=== PATIENT | male | born 1970 | race Caucasian/White ===

== ENCOUNTER 2023-09-06 04:20 | Inpatient (IN) | payer BC, OTHER ==
[~2023-09-06] VITALS: Ht 175.3 cm; Wt 68.9 kg
[2023-09-06] VITALS (10 sets, daily range): BP systolic 98–136; BP diastolic 58–78; TEMP 98.8–100.6; O2SAT 93–99
[2023-09-06] MEDS ORDERED: ACETAMINOPHEN 325 MG TABLET ONE (04:45)
[2023-09-06] MEDS: IV NS 0.9% 1,000 ML BAG IV ONE ×2 (04:46→06:27)
[2023-09-06] MEDS: ACETAMINOPHEN 650 MG/20 ML UDC- SA PATIENTS-FEVER ONLY GT PRN (04:47)
[2023-09-06 04:54] LABS: BASOPHILS % (AUTO) 0.6 % (0.0-2.0); EOSINOPHILS % (AUTO) 0.6 % (0.0-6.0); HEMATOCRIT 36 % (39-51); LYMPHOCYTES # (AUTO) 1.1 K/uL (0.8-4.8); LYMPHOCYTES % (AUTO) 14.2 % (20.0-44.0); MEAN CORPUSCULAR HEMOGLOBIN 28 PG (26.0-33.0); MEAN CORPUSCULAR HGB CONC 33 g/dl (31.0-36.0); MEAN CORPUSCULAR VOLUME 86 fL (80-96); MONOCYTES # (AUTO) 0.3 K/uL (0.1-1.30); MONOCYTES % (AUTO) 4.2 % (2.0-12.0); NEUTROPHILS # (AUTO) 6.4 K/uL (1.8-8.9); NEUTROPHILS % (AUTO) 80.4 % (43.0-81.0); PLATELET COUNT (AUTO) 197 K/uL (150-450); RED BLOOD CELL COUNT(AUTO) 4.23 MIL/uL (4.5-6.0); RED CELL DISTRIBUTION WIDTH 15.6 % (11.5-15.0); WHITE BLOOD COUNT (AUTO) 7.9 K/uL (4.3-11.0)
[2023-09-06 04:57] LABS: ADD URINE CULTURE NO; APPEARANCE,URINE CLEAR (CLEAR); BACTERIA,URINE Rare /HPF (None Seen); BILIRUBIN,URINE NEGATIVE (NEGATIVE); BLOOD, URINE NEGATIVE Ery/uL (NEGATIVE); COLOR,URINE DARK YELLOW (YELLOW); KETONES,URINE TRACE mg/dL (NEGATIVE); LEUKOCYTE ESTERASE ,URINE NEGATIVE (NEGATIVE); NITRITE, URINE NEGATIVE (NEGATIVE); PROTEIN,URINE TRACE mg/dl (NEGATIVE); RBC,URINE 0-2 /HPF (0-2); SQUAMOUS EPITHELIAL CELL,UR Rare /HPF (None Seen); UGLUCOSE NEGATIVE (NEGATIVE); UROBILINOGEN,URINE 0.2 EU/dL (0.2); WBC,URINE 0-2 /HPF (0-3)
[2023-09-06 05:05] LABS: INR 1.16 (0.91-1.10); PARTIAL THROMBOPLASTIN TIME 37.4 SEC (24.3-34.3); PROTHROMBIN TIME 12.2 SECS (9.2-11.1)
[2023-09-06 05:08] LABS: ALANINE AMINOTRANSFERASE 103 U/L (12-78); ALBUMIN 2.1 g/dL (3.4-5.0); ALKALINE PHOSPHATASE 275 U/L (46-116); ASPARTATE AMINOTRANSFERASE 46 U/L (15-37); BILIRUBIN,DIRECT 0.1 mg/dL (0.0-0.2); BILIRUBIN,TOTAL 0.4 mg/dL (0.2-1.0); CALCIUM, SERUM 8.4 mg/dL (8.5-10.1); CARBON DIOXIDE 22 mmol/L (21-32); CHLORIDE 102 mmol/L (98-107); CREATININE 1.7 mg/dL (0.6-1.3); GLUCOSE 166 mg/dL (74-106); POTASSIUM 3.7 mmol/L (3.5-5.1); SODIUM SERUM 133 mmol/L (136-145); UREA NITROGEN, BLOOD 58 mg/dL (7-18)
[2023-09-06 05:15] LABS: ABG BASE EXCESS -4.8 mmol/L; ABG OXYGEN SATURATION 95.2 % (92.0-98.5); ABG PCO2 33.6 mmHg (35.0-45.0); ABG PH 7.383 (7.350-7.450); ABG PO2 82.5 mmHg (75.0-100.0); ABG TOTAL HEMOGLOBIN 11.2 G/dL (13.5-18.0); COHb 0.2 % (0.5-1.5); MetHb 0.2 % (0.0-1.5); O2Hb 94.8 % (94.0-97.0); SITE, ABG Right Radial; VENT MODE, BG 8L IN LINE
[2023-09-06] MEDS ORDERED: ACETAMINOPHEN 325 MG TABLET PO PRN (05:30)
[2023-09-06] MEDS ORDERED: ONDANSETRON HCL/PF 4 MG/2 ML VIAL IVP PRN (05:30)
[2023-09-06] MEDS ORDERED: PANTOPRAZOLE 40 MG VIAL ONE ×2 (05:55→06:30)
[2023-09-06] MEDS ORDERED: ACETAMINOPHEN 650 MG/20.3 ML UDC ONE (05:55)
[2023-09-06] MEDS ORDERED: PIPERACI/TAZO 3.375GM/D5W 50ML PB IV ONE (06:08)
[2023-09-06] MEDS: PIPERACILLIN /TAZOBACTAM 3.375 G in IV D5W 50 ML IV ONE (06:09)
[2023-09-06] MEDS: PANTOPRAZOLE 40 MG VIAL IV SCH (06:27)
[2023-09-06] MEDS: PANTOPRAZOLE 80 MG in IV NS 0.9% 500 ML IV ONE (06:44)
[2023-09-06 10:48] LABS: BASOPHILS # (AUTO) 0.1 K/uL (0.0-0.2); BASOPHILS % (AUTO) 1.3 % (0.0-2.0); EOSINOPHILS # (AUTO) 0.3 K/uL (0.0-0.7); EOSINOPHILS % (AUTO) 5.1 % (0.0-6.0); HEMATOCRIT 33 % (39-51); HEMOGLOBIN 10.2 g/dL (13.5-17.5); LYMPHOCYTES # (AUTO) 0.5 K/uL (0.8-4.8); MEAN CORPUSCULAR HEMOGLOBIN 29 PG (26.0-33.0); MEAN CORPUSCULAR HGB CONC 31 g/dl (31.0-36.0); MEAN CORPUSCULAR VOLUME 91 fL (80-96); MONOCYTES # (AUTO) 0.2 K/uL (0.1-1.30); MONOCYTES % (AUTO) 4.2 % (2.0-12.0); NEUTROPHILS # (AUTO) 4.5 K/uL (1.8-8.9); NEUTROPHILS % (AUTO) 80.4 % (43.0-81.0); PLATELET COUNT (AUTO) 163 K/uL (150-450); RED BLOOD CELL COUNT(AUTO) 3.56 MIL/uL (4.5-6.0); RED CELL DISTRIBUTION WIDTH 16.3 % (11.5-15.0); WHITE BLOOD COUNT (AUTO) 5.6 K/uL (4.3-11.0)
[2023-09-06] MEDS: VANCOMYCIN HCL 1.25 GM in IV D5W 250 ML IV ONE (11:35)
[2023-09-06] MEDS: IV NS 0.9% 1,000 ML IV PRN (11:36)
[2023-09-06] MEDS ORDERED: LISI20TA30 GT (12:16)
[2023-09-06] MEDS ORDERED: MAGN400T8 GT (12:16)
[2023-09-06] MEDS ORDERED: MODAFINIL GT (12:16)
[2023-09-06] MEDS ORDERED: FAMO20TA8 GT (12:16)
[2023-09-06] MEDS ORDERED: POTASSIUM BICARB GT (12:16)
[2023-09-06] MEDS ORDERED: LABE200T5 GT (12:16)
[2023-09-06] MEDS ORDERED: NA P133E RC (12:16)
[2023-09-06] MEDS ORDERED: MAGN400O6 GT (12:16)
[2023-09-06] MEDS ORDERED: HYDR-4075 GT (12:16)
[2023-09-06] MEDS ORDERED: HONE44PA TP (12:16)
[2023-09-06] MEDS ORDERED: BACL10TA GT (12:16)
[2023-09-06] MEDS ORDERED: ACET325T53 GT (12:16)
[2023-09-06] MEDS ORDERED: ACET-637 GT (12:16)
[2023-09-06] MEDS ORDERED: CHLO473M5 PO (12:16)
[2023-09-06] MEDS ORDERED: BISA10SU11 RC (12:16)
[2023-09-06] MEDS ORDERED: CLON0.1T GT (12:16)
[2023-09-06] MEDS ORDERED: HEPA500014 SQ (12:16)
[2023-09-06] MEDS ORDERED: TEMA15CA GT (12:16)
[2023-09-06] MEDS ORDERED: IPRA4AER IH ×2 (12:16)
[2023-09-06] MEDS ORDERED: ZONI100C31 GT (12:16)
[2023-09-06] MEDS ORDERED: DOCU100C36 GT (12:16)
[2023-09-06] MEDS ORDERED: LACT-89 GT (12:19)
[2023-09-06] MEDS: THERAHONEY GEL 1.5 OZ TUBE TP SCH (13:04)
[2023-09-06] MEDS: DAKINS QUARTER STRENGTH (0.125%) 480 ML BOTTLE TOP SCH (13:04)
[2023-09-06] MEDS: ZOSYN IVPB 3.375 G in IV D5W 50ml IV SCH (14:16)
[2023-09-06] MEDS: ACETAMINOPHEN 650 MG/20.3 ML UDC GT PRN (15:53)
[2023-09-06] MEDS: VANCOMYCIN 750 MG in IV D5W 250 ML IV SCH (21:29)
[2023-09-07] VITALS (12 sets, daily range): BP systolic 137–176; BP diastolic 74–99; TEMP 98.2–99.5; O2SAT 97–100
[2023-09-07 06:50] LABS: APPEARANCE,URINE TURBID (CLEAR); BILIRUBIN,URINE NEGATIVE (NEGATIVE); BLOOD, URINE 2+ Ery/uL (NEGATIVE); COLOR,URINE DARK YELLOW (YELLOW); KETONES,URINE NEGATIVE (NEGATIVE); LEUKOCYTE ESTERASE ,URINE NEGATIVE (NEGATIVE); NITRITE, URINE NEGATIVE (NEGATIVE); PROTEIN,URINE TRACE mg/dl (NEGATIVE); UGLUCOSE NEGATIVE (NEGATIVE); UROBILINOGEN,URINE 0.2 EU/dL (0.2)
[2023-09-07 07:07] LABS: BASOPHILS % (AUTO) 0.4 % (0.0-2.0); EOSINOPHILS # (AUTO) 0.6 K/uL (0.0-0.7); EOSINOPHILS % (AUTO) 12.2 % (0.0-6.0); HEMATOCRIT 29 % (39-51); HEMOGLOBIN 9.7 g/dL (13.5-17.5); LYMPHOCYTES # (AUTO) 0.8 K/uL (0.8-4.8); LYMPHOCYTES % (AUTO) 17.3 % (20.0-44.0); MEAN CORPUSCULAR HEMOGLOBIN 29 PG (26.0-33.0); MEAN CORPUSCULAR HGB CONC 34 g/dl (31.0-36.0); MEAN CORPUSCULAR VOLUME 86 fL (80-96); MONOCYTES # (AUTO) 0.3 K/uL (0.1-1.30); MONOCYTES % (AUTO) 5.5 % (2.0-12.0); NEUTROPHILS # (AUTO) 3.1 K/uL (1.8-8.9); NEUTROPHILS % (AUTO) 64.6 % (43.0-81.0); PLATELET COUNT (AUTO) 167 K/uL (150-450); RED BLOOD CELL COUNT(AUTO) 3.32 MIL/uL (4.5-6.0); RED CELL DISTRIBUTION WIDTH 15.4 % (11.5-15.0); WHITE BLOOD COUNT (AUTO) 4.8 K/uL (4.3-11.0)
[2023-09-07 07:09] LABS: ADD URINE CULTURE YES; BACTERIA,URINE Rare /HPF (None Seen); SQUAMOUS EPITHELIAL CELL,UR Few /HPF (None Seen)
[2023-09-07 07:27] LABS: CREATININE, URINE 117.1 MG/DL (30.0-125.0); URINE TOTAL PROTEIN 93.5 mg/dL (0-11.9)
[2023-09-07 07:30] LABS: EOSINOPHIL,URINE None Seen
[2023-09-07 07:39] LABS: ALBUMIN 1.9 g/dL (3.4-5.0); BILIRUBIN,TOTAL 0.4 mg/dL (0.2-1.0); CALCIUM, SERUM 8.3 mg/dL (8.5-10.1); CREATININE 0.8 mg/dL (0.6-1.3); MAGNESIUM 1.9 mg/dL (1.8-2.4); PHOSPHORUS 2.4 mg/dL (2.5-4.9); POTASSIUM 3.3 mmol/L (3.5-5.1); TOTAL PROTEIN, SERUM 6.3 g/dL (6.4-8.2)
[2023-09-07] MEDS: POTASSIUM CL. PREMIX PERIPHER. 50 ML IV SCH (08:26)
[2023-09-07] MEDS: NEUTRA PHOS 1 POWD.PACKET PO ONE (16:08)
[2023-09-07] MEDS: CADEXOMER IODINE 40 GM TUBE TP SCH (16:11)
[2023-09-07] MEDS: VANCOMYCIN 750 MG in IV D5W 250 ML IV SCH (16:27)
[2023-09-07] MEDS: CLONIDINE HCL 0.1 MG TABLET GT PRN (16:50)
[2023-09-07] MEDS: PANTOPRAZOLE 40 MG/PACK PACK GT SCH (20:56)
[2023-09-08] VITALS (10 sets, daily range): BP systolic 142–186; BP diastolic 65–115; TEMP 97.2–99.2; O2SAT 99–100
[2023-09-08 07:02] LABS: BASOPHILS % (AUTO) 0.8 % (0.0-2.0); EOSINOPHILS # (AUTO) 0.4 K/uL (0.0-0.7); HEMATOCRIT 31 % (39-51); HEMOGLOBIN 10.4 g/dL (13.5-17.5); LYMPHOCYTES # (AUTO) 0.9 K/uL (0.8-4.8); LYMPHOCYTES % (AUTO) 19.7 % (20.0-44.0); MEAN CORPUSCULAR HEMOGLOBIN 29 PG (26.0-33.0); MEAN CORPUSCULAR HGB CONC 34 g/dl (31.0-36.0); MEAN CORPUSCULAR VOLUME 86 fL (80-96); MONOCYTES # (AUTO) 0.4 K/uL (0.1-1.30); MONOCYTES % (AUTO) 7.7 % (2.0-12.0); NEUTROPHILS % (AUTO) 62.8 % (43.0-81.0); PLATELET COUNT (AUTO) 212 K/uL (150-450); RED BLOOD CELL COUNT(AUTO) 3.59 MIL/uL (4.5-6.0); RED CELL DISTRIBUTION WIDTH 14.9 % (11.5-15.0); WHITE BLOOD COUNT (AUTO) 4.8 K/uL (4.3-11.0)
[2023-09-08 08:04] LABS: CALCIUM, SERUM 8.2 mg/dL (8.5-10.1); CREATININE 0.7 mg/dL (0.6-1.3); POTASSIUM 3.6 mmol/L (3.5-5.1)
[2023-09-08 09:07] LABS: PTH, INTACT 15 pg/mL (15-65)
[2023-09-08] MEDS: ARGININE/GLUTAMINE/CALCIUM BMB 1 EACH POWD.PACK GT SCH (09:31)
[2023-09-08] MEDS: PROSOURCE / PROSTAT (PYXIS) 30 ML UDC GT SCH (09:31)
[2023-09-08 12:07] LABS: *SPE A/G RATIO 0.7 (0.7-1.7); *SPE ALBUMIN 2.3 g/dL (2.9-4.4); *SPE ALPHA-1-GLOBULIN 0.5 g/dL (0.0-0.4); *SPE BETA GLOBULIN 0.9 g/dL (0.7-1.3); *SPE GLOBULIN, TOTAL 3.4 g/dL (2.2-3.9); *SPE M-SPIKE Not Observed g/dL (Not Observed); *SPE PROTEIN TOTAL 5.7 g/dL (6.0-8.5)
[2023-09-08] MEDS: ZOSYN IVPB 4.5 G in IV D5W 50ml IV SCH (12:12)
[2023-09-08] MEDS: JEVITY 1.2 CAL 1,000 ML BOTTLE GT PRN (13:34)
[2023-09-09] VITALS (9 sets, daily range): BP systolic 152–165; BP diastolic 86–109; TEMP 98.4–99.2; O2SAT 99–100
[2023-09-09 06:43] LABS: BASOPHILS % (AUTO) 0.4 % (0.0-2.0); EOSINOPHILS # (AUTO) 0.4 K/uL (0.0-0.7); EOSINOPHILS % (AUTO) 7.8 % (0.0-6.0); HEMATOCRIT 32 % (39-51); HEMOGLOBIN 10.7 g/dL (13.5-17.5); LYMPHOCYTES # (AUTO) 1.2 K/uL (0.8-4.8); LYMPHOCYTES % (AUTO) 21.6 % (20.0-44.0); MEAN CORPUSCULAR HEMOGLOBIN 29 PG (26.0-33.0); MEAN CORPUSCULAR HGB CONC 34 g/dl (31.0-36.0); MEAN CORPUSCULAR VOLUME 87 fL (80-96); MONOCYTES # (AUTO) 0.5 K/uL (0.1-1.30); MONOCYTES % (AUTO) 8.5 % (2.0-12.0); NEUTROPHILS # (AUTO) 3.4 K/uL (1.8-8.9); NEUTROPHILS % (AUTO) 61.7 % (43.0-81.0); PLATELET COUNT (AUTO) 236 K/uL (150-450); RED BLOOD CELL COUNT(AUTO) 3.65 MIL/uL (4.5-6.0); RED CELL DISTRIBUTION WIDTH 14.8 % (11.5-15.0); WHITE BLOOD COUNT (AUTO) 5.5 K/uL (4.3-11.0)
[2023-09-09 07:13] LABS: CALCIUM, SERUM 8.3 mg/dL (8.5-10.1); CREATININE 0.7 mg/dL (0.6-1.3); POTASSIUM 3.3 mmol/L (3.5-5.1)
[2023-09-09] MEDS: hydrALAZINE HCL 50 MG TABLET GT SCH (09:42)
[2023-09-09] MEDS: NITROGLYCERIN 30 GM TUBE TP SCH (10:01)
[2023-09-09] MEDS: POTASSIUM CHLORIDE 20 MEQ POWDER PACKET PO ONE (11:34)
[2023-09-10] VITALS (11 sets, daily range): BP systolic 146–166; BP diastolic 92–118; TEMP 98.5–99; O2SAT 96–99
[2023-09-10 08:45] LABS: CALCIUM, SERUM 7.8 mg/dL (8.5-10.1); CREATININE 0.7 mg/dL (0.6-1.3); POTASSIUM 3.8 mmol/L (3.5-5.1)
[2023-09-10] MEDS: METOPROLOL TARTRATE 50 MG TABLET PO SCH (09:36)
[2023-09-10] MEDS: MAGNESIUM HYDROXIDE 30 ML UDC PO PRN (11:33)
[2023-09-11] VITALS (7 sets, daily range): BP systolic 150–173; BP diastolic 72–102; TEMP 97.7–99.4; O2SAT 96–99
[2023-09-11 08:39] LABS: CALCIUM, SERUM 7.8 mg/dL (8.5-10.1); CREATININE 0.7 mg/dL (0.6-1.3)
[2023-09-11] MEDS: NIFEdipine (10MG) 10 MG CAPSULE PO SCH (09:45)
[2023-09-11] MEDS: AMLODIPINE BESYLATE 5 MG TABLET GT SCH (10:50)
[2023-09-12] VITALS (11 sets, daily range): BP systolic 145–182; BP diastolic 75–116; TEMP 98.2–99.5; O2SAT 95–99
[2023-09-12 07:15] LABS: CALCIUM, SERUM 8.4 mg/dL (8.5-10.1); CREATININE 0.7 mg/dL (0.6-1.3)
[2023-09-12] MEDS ORDERED: NITROGLYCERIN 30 GM TUBE TP SCH (13:30)
[2023-09-12] MEDS: MORPHINE SULFATE INJ 2 MG/ML DISP.SYRIN IV PRN (13:46)
[2023-09-13] VITALS (10 sets, daily range): BP systolic 125–165; BP diastolic 79–95; TEMP 98–99; O2SAT 95–98
[2023-09-13 07:33] LABS: CREATININE 0.7 mg/dL (0.6-1.3); POTASSIUM 4.1 mmol/L (3.5-5.1)
[2023-09-13 13:15] LABS: BASOPHILS # (AUTO) 0.1 K/uL (0.0-0.2); BASOPHILS % (AUTO) 0.8 % (0.0-2.0); EOSINOPHILS # (AUTO) 0.5 K/uL (0.0-0.7); HEMATOCRIT 34 % (39-51); HEMOGLOBIN 11.3 g/dL (13.5-17.5); LYMPHOCYTES # (AUTO) 1.9 K/uL (0.8-4.8); LYMPHOCYTES % (AUTO) 22.6 % (20.0-44.0); MEAN CORPUSCULAR HEMOGLOBIN 29 PG (26.0-33.0); MEAN CORPUSCULAR HGB CONC 34 g/dl (31.0-36.0); MEAN CORPUSCULAR VOLUME 87 fL (80-96); MONOCYTES # (AUTO) 0.9 K/uL (0.1-1.30); MONOCYTES % (AUTO) 11.1 % (2.0-12.0); NEUTROPHILS % (AUTO) 59.5 % (43.0-81.0); PLATELET COUNT (AUTO) 502 K/uL (150-450); RED BLOOD CELL COUNT(AUTO) 3.88 MIL/uL (4.5-6.0); RED CELL DISTRIBUTION WIDTH 15.9 % (11.5-15.0); WHITE BLOOD COUNT (AUTO) 8.4 K/uL (4.3-11.0)
[2023-09-14 00:18] VITALS: O2SAT 96
[2023-09-14 04:00] VITALS: BP 151/82; TEMP 98.1; O2SAT 98
[2023-09-14 04:02] VITALS: O2SAT 96
[2023-09-14 08:00] VITALS: BP 136/86; TEMP 98.3; O2SAT 98
[2023-09-14] MEDS: AMLODIPINE BESYLATE 5 MG TABLET GT SCH (09:13)
[2023-09-14] MEDS ORDERED: METO50TA16 PO (09:21)
[2023-09-14] MEDS ORDERED: PIPE3.379 IV (09:21)
[2023-09-14] MEDS ORDERED: AMLO-212 GT (09:21)
[2023-09-14 12:34] VITALS: BP 126/85
[2023-09-14] MEDS: MORPHINE SULFATE INJ 2 MG/ML DISP.SYRIN IV ONE (14:54)
[2023-09-14] MEDS ORDERED: HYDR-3972 PO (15:22)
== END 2023-09-14 16:13 | DRG 981 ==
LOC: EDBD 04:25 → ER 04:25 → TELE-TD 07:28 → TELE1 09-07 07:57 → MEDSG1 09-07 08:45
PROVIDERS: ADMIT Internal Medicine; ATTEND Nurse Practitioner Acute Care
PROC: 0DB68ZX Excision of Stomach, Via Natural or Artificial Opening Endoscopic, Diagnostic (ICD-10-PCS; principal; 2023-09-07)
PROC: 0KBN0ZZ Excision of Right Hip Muscle, Open Approach (ICD-10-PCS; 2023-09-13)
PROC: 0KBP0ZZ Excision of Left Hip Muscle, Open Approach (ICD-10-PCS; 2023-09-13)
DX: K29.70 Gastritis, unspecified, without bleeding (principal); E43 Unspecified severe protein-calorie malnutrition; L89.894 Pressure ulcer of other site, stage 4; L89.154 Pressure ulcer of sacral region, stage 4; J15.69 Pneumonia due to other Gram-negative bacteria; G93.41 Metabolic encephalopathy; N17.0 Acute kidney failure with tubular necrosis; I21.A1 Myocardial infarction type 2; Z99.11 Dependence on respirator [ventilator] status; J96.11 Chronic respiratory failure with hypoxia; E87.1 Hypo-osmolality and hyponatremia; D68.59 Other primary thrombophilia; Z93.0 Tracheostomy status; Z93.1 Gastrostomy status; N18.9 Chronic kidney disease, unspecified; I12.9 Hypertensive chronic kidney disease with stage 1 through stage 4 chronic kidney disease, or unspecified chronic kidney disease; R13.10 Dysphagia, unspecified; Z20.822 Contact with and (suspected) exposure to COVID-19; F19.10 Other psychoactive substance abuse, uncomplicated; G40.909 Epilepsy, unspecified, not intractable, without status epilepticus; Z86.73 Personal history of transient ischemic attack (TIA), and cerebral infarction without residual deficits; E86.1 Hypovolemia; E88.09 Other disorders of plasma-protein metabolism, not elsewhere classified; R74.01 Elevation of levels of liver transaminase levels; Z74.09 Other reduced mobility; Z74.01 Bed confinement status; Y95 Nosocomial condition; Z87.891 Personal history of nicotine dependence; D64.9 Anemia, unspecified; M89.8X9 Other specified disorders of bone, unspecified site
CPT/HCPCS: 31720; 36415; 36600; 71045-TC; 76700-TC; 80048-TC; 80053-TC; 80076-TC; 80202-TC; 81001; 82550-TC; 82570-TC; 83605-TC; 83735-TC; 83970; 84100-TC; 84155; 84165; 84300-TC; 84484-TC; 85025-TC; 85730-TC; 86850-TC; 87040-TC; 87081-TC; 87086-TC; 88305-TC; 88313-TC; 88342; 93307-TC; 94640-TC; 94760-TC; 94799-TC; A4223; A4623; A6403; C9113; G0378; J0330; J2270; J2543; J2704; J3371; J3480; J7030; J7040; J7050; J7060

== ENCOUNTER 2023-09-28 12:47 | Inpatient (IN) | payer BC ==
[~2023-09-28] VITALS: Ht 170.2 cm; Wt 78.0 kg
[~2023-09-28 12:47] MED LIST: ACET-637 GT; ACET325T53 GT; AMLO-212 GT; BACL10TA GT; BISA10SU11 RC; CHLO473M5 PO; CLON0.1T GT; DOCU100C36 GT; FAMO20TA8 GT; HEPA500014 SQ; HONE44PA TP; HYDR-3972 PO; HYDR-4075 GT; IPRA4AER IH; LACT-89 GT; MAGN400O6 GT; MAGN400T8 GT; METO50TA16 PO; MODAFINIL GT; NA P133E RC; PIPE3.379 IV; POTASSIUM BICARB GT; TEMA15CA GT; ZONI100C31 GT
[2023-09-28] MEDS: IV NS 0.9% 1,000 ML BAG IV ONE (13:01)
[2023-09-28 13:11] LABS: BASOPHILS # (AUTO) 0.1 K/uL (0.0-0.2); BASOPHILS % (AUTO) 0.7 % (0.0-2.0); EOSINOPHILS # (AUTO) 0.1 K/uL (0.0-0.7); EOSINOPHILS % (AUTO) 1.8 % (0.0-6.0); HEMATOCRIT 39 % (39-51); LYMPHOCYTES # (AUTO) 1.7 K/uL (0.8-4.8); LYMPHOCYTES % (AUTO) 22.1 % (20.0-44.0); MEAN CORPUSCULAR HEMOGLOBIN 28 PG (26.0-33.0); MEAN CORPUSCULAR HGB CONC 33 g/dl (31.0-36.0); MEAN CORPUSCULAR VOLUME 85 fL (80-96); MONOCYTES # (AUTO) 0.6 K/uL (0.1-1.30); MONOCYTES % (AUTO) 7.7 % (2.0-12.0); NEUTROPHILS # (AUTO) 5.3 K/uL (1.8-8.9); NEUTROPHILS % (AUTO) 67.7 % (43.0-81.0); PLATELET COUNT (AUTO) 359 K/uL (150-450); RED BLOOD CELL COUNT(AUTO) 4.64 MIL/uL (4.5-6.0); RED CELL DISTRIBUTION WIDTH 15.4 % (11.5-15.0); WHITE BLOOD COUNT (AUTO) 7.8 K/uL (4.3-11.0)
[2023-09-28 13:28] LABS: INR 1.08 (0.91-1.10); PARTIAL THROMBOPLASTIN TIME 34.3 SEC (24.3-34.3); PROTHROMBIN TIME 11.4 SECS (9.2-11.1)
[2023-09-28 13:33] LABS: LACTIC ACID 1.3 mmol/L (0.4-2.0)
[2023-09-28 13:39] LABS: CALCIUM, SERUM 9.2 mg/dL (8.5-10.1); CARBON DIOXIDE 27 mmol/L (21-32); CHLORIDE 100 mmol/L (98-107); CREATININE 0.8 mg/dL (0.6-1.3); GLUCOSE 126 mg/dL (74-106); POTASSIUM 4.5 mmol/L (3.5-5.1); SODIUM SERUM 135 mmol/L (136-145); UREA NITROGEN, BLOOD 17 mg/dL (7-18)
[2023-09-28 13:45] LABS: ALANINE AMINOTRANSFERASE 40 U/L (12-78); ALBUMIN 2.9 g/dL (3.4-5.0); ALKALINE PHOSPHATASE 204 U/L (46-116); ASPARTATE AMINOTRANSFERASE 31 U/L (15-37); BILIRUBIN,DIRECT 0.1 mg/dL (0.0-0.2); BILIRUBIN,TOTAL 0.4 mg/dL (0.2-1.0); TOTAL PROTEIN, SERUM 7.7 g/dL (6.4-8.2)
[2023-09-28] MEDS ORDERED: AMLO-212 GT (14:33)
[2023-09-28] MEDS ORDERED: COLL30OI TP (14:33)
[2023-09-28] MEDS ORDERED: ASCO500T21 GT (14:33)
[2023-09-28] MEDS ORDERED: NITR0.4T48 SL (14:33)
[2023-09-28] MEDS ORDERED: LORA-258 GT (14:33)
[2023-09-28] MEDS ORDERED: BACL5TAB GT (14:33)
[2023-09-28] MEDS ORDERED: AMIN30LI2 GT (14:33)
[2023-09-28] MEDS ORDERED: PANT40SU2 GT (14:33)
[2023-09-28] MEDS ORDERED: ALLA266C2 TP (14:33)
[2023-09-28] MEDS ORDERED: HYDR-3972 GT (14:33)
[2023-09-28] MEDS ORDERED: LACT-209 GT (14:33)
[2023-09-28] MEDS ORDERED: ZINC220C6 GT (14:33)
[2023-09-28] MEDS ORDERED: ZOLPIDEM TARTRATE 5 MG TABLET PO PRN (15:00)
[2023-09-28] MEDS ORDERED: BISACODYL SUPP (10 MG) 10 MG/SUPP.RECT SUPP.RECT RC PRN (15:00)
[2023-09-28] MEDS ORDERED: NITROGLYCERIN 0.4 MG/TAB BOTTLE SL PRN (15:00)
[2023-09-28] MEDS ORDERED: ACETAMINOPHEN 325 MG TABLET PO PRN (15:00)
[2023-09-28] MEDS ORDERED: Z GUARD REMEDY 4 OZ OINT TP PRN (15:00)
[2023-09-28] MEDS ORDERED: MAGNESIUM HYDROXIDE 30 ML UDC GT PRN (15:00)
[2023-09-28] MEDS ORDERED: MAG HYDROX/AL HYDROX/SIMETH 30 ML UDC PO PRN (15:00)
[2023-09-28] MEDS ORDERED: ONDANSETRON HCL/PF 4 MG/2 ML VIAL IVP PRN (15:00)
[2023-09-28] MEDS ORDERED: MAGNESIUM HYDROXIDE 30 ML UDC PO PRN (15:00)
[2023-09-28] MEDS ORDERED: ZOLPIDEM TARTRATE 5 MG TABLET GT PRN (15:09)
[2023-09-28] MEDS ORDERED: MAG HYDROX/AL HYDROX/SIMETH 30 ML UDC GT PRN (15:09)
[2023-09-28 15:11] LABS: APPEARANCE,URINE Slightly Cloudy (CLEAR); BILIRUBIN,URINE Negative (NEGATIVE); BLOOD, URINE Moderate Ery/uL (NEGATIVE); COLOR,URINE YELLOW (YELLOW); KETONES,URINE Negative (NEGATIVE); LEUKOCYTE ESTERASE ,URINE Negative (NEGATIVE); NITRITE, URINE Negative (NEGATIVE); PH,URINE 7.5 (5.0-8.0); PROTEIN,URINE Trace mg/dl (NEGATIVE); UGLUCOSE Negative (NEGATIVE); UROBILINOGEN,URINE 0.2 EU/dL (0.2)
[2023-09-28 15:30] LABS: ADD URINE CULTURE NO; BACTERIA,URINE Few /HPF (None Seen); RBC,URINE 21-50 /HPF (0-2); SQUAMOUS EPITHELIAL CELL,UR Few /HPF (None Seen); WBC,URINE 0-3 /HPF (0-3)
[2023-09-28 15:31] LABS: CALCIUM OXALATE CRYSTALS,UR Few /HPF (None Seen)
[2023-09-28] MEDS ORDERED: IV NS 0.9% 250 ML IV ONE (16:30)
[2023-09-28] MEDS ORDERED: IOHEXOL-350 100 ML VIAL IV ONE (16:30)
[2023-09-28] MEDS: PROSOURCE / PROSTAT (PYXIS) 30 ML UDC GT SCH (16:37)
[2023-09-28] MEDS: BACLOFEN (10 MG) 10 MG TABLET GT SCH (16:37)
[2023-09-28] MEDS: PANTOPRAZOLE 40 MG/PACK PACK GT SCH (16:37)
[2023-09-28] MEDS: HYDROCODONE/APAP 5/325MG TABLET GT PRN (16:39)
[2023-09-28 16:53] VITALS: BP 150/97; TEMP 97.8
[2023-09-28] MEDS: JEVITY 1.2 CAL 1,000 ML BOTTLE GT PRN (18:57)
[2023-09-28] MEDS: LORAZEPAM 0.5 MG TABLET GT SCH (21:55)
[2023-09-28 22:00] VITALS: BP 155/95; TEMP 98.8
[2023-09-28] MEDS: METOPROLOL TARTRATE 50 MG TABLET GT SCH (22:07)
[2023-09-29] VITALS (8 sets, daily range): BP systolic 110–172; BP diastolic 60–132; TEMP 98.2–99.2; O2SAT 89–98
[2023-09-29 06:45] LABS: BASOPHILS % (AUTO) 0.7 % (0.0-2.0); EOSINOPHILS # (AUTO) 0.3 K/uL (0.0-0.7); EOSINOPHILS % (AUTO) 4.5 % (0.0-6.0); HEMATOCRIT 38 % (39-51); HEMOGLOBIN 12.9 g/dL (13.5-17.5); LYMPHOCYTES # (AUTO) 1.9 K/uL (0.8-4.8); LYMPHOCYTES % (AUTO) 28.2 % (20.0-44.0); MEAN CORPUSCULAR HEMOGLOBIN 29 PG (26.0-33.0); MEAN CORPUSCULAR HGB CONC 34 g/dl (31.0-36.0); MEAN CORPUSCULAR VOLUME 86 fL (80-96); MONOCYTES # (AUTO) 0.6 K/uL (0.1-1.30); MONOCYTES % (AUTO) 9.4 % (2.0-12.0); NEUTROPHILS # (AUTO) 3.9 K/uL (1.8-8.9); NEUTROPHILS % (AUTO) 57.2 % (43.0-81.0); PLATELET COUNT (AUTO) 311 K/uL (150-450); RED BLOOD CELL COUNT(AUTO) 4.48 MIL/uL (4.5-6.0); RED CELL DISTRIBUTION WIDTH 16.1 % (11.5-15.0); WHITE BLOOD COUNT (AUTO) 6.8 K/uL (4.3-11.0)
[2023-09-29 06:56] LABS: ALBUMIN 2.7 g/dL (3.4-5.0); BILIRUBIN,TOTAL 0.4 mg/dL (0.2-1.0); CALCIUM, SERUM 8.9 mg/dL (8.5-10.1); CREATININE 0.8 mg/dL (0.6-1.3); MAGNESIUM 1.9 mg/dL (1.8-2.4); PHOSPHORUS 3.9 mg/dL (2.5-4.9); POTASSIUM 4.1 mmol/L (3.5-5.1); TOTAL PROTEIN, SERUM 7.5 g/dL (6.4-8.2)
[2023-09-29 07:26] LABS: THYROID STIMULATING HORMONE 1.801 uIU/mL (0.358-3.74)
[2023-09-29] MEDS: ASCORBIC ACID 500 MG TABLET GT SCH (08:44)
[2023-09-29] MEDS: AMLODIPINE BESYLATE 5 MG TABLET GT SCH (08:44)
[2023-09-29] MEDS: ASPIRIN 81 MG TAB.CHEW GT SCH (08:46)
[2023-09-29] MEDS: THERAHONEY GEL 1.5 OZ TUBE TP SCH ×2 (09:57→17:11)
[2023-09-29] MEDS: JEVITY 1.2 CAL 1,000 ML BOTTLE GT PRN (10:32)
[2023-09-29] MEDS: CLONIDINE HCL 0.1 MG TABLET GT PRN (12:56)
[2023-09-29] MEDS: ACETAMINOPHEN 650 MG/20.3 ML UDC GT PRN (21:20)
[2023-09-30] VITALS (7 sets, daily range): BP systolic 140–159; BP diastolic 89–100; TEMP 98.7–99; O2SAT 96–98
== END 2023-09-30 13:32 | DRG 205 ==
LOC: ER 12:48 → TELE1 14:41 → MEDSG1 09-29 10:50
PROVIDERS: ADMIT Nurse Practitioner Acute Care; ATTEND Nurse Practitioner Acute Care
DX: M94.0 Chondrocostal junction syndrome [Tietze] (principal); G93.41 Metabolic encephalopathy; L89.154 Pressure ulcer of sacral region, stage 4; D68.59 Other primary thrombophilia; J96.10 Chronic respiratory failure, unspecified whether with hypoxia or hypercapnia; G40.909 Epilepsy, unspecified, not intractable, without status epilepticus; Z86.73 Personal history of transient ischemic attack (TIA), and cerebral infarction without residual deficits; I13.10 Hypertensive heart and chronic kidney disease without heart failure, with stage 1 through stage 4 chronic kidney disease, or unspecified chronic kidney disease; N18.9 Chronic kidney disease, unspecified; R13.10 Dysphagia, unspecified; Z86.72 Personal history of thrombophlebitis; F19.10 Other psychoactive substance abuse, uncomplicated; R74.01 Elevation of levels of liver transaminase levels; Z79.51 Long term (current) use of inhaled steroids; Z79.899 Other long term (current) drug therapy; Z93.0 Tracheostomy status; Z93.1 Gastrostomy status; Z79.82 Long term (current) use of aspirin; Z74.01 Bed confinement status
CPT/HCPCS: 31720; 36415; 71045-TC; 80048-TC; 80053-TC; 80061-TC; 80076-TC; 81001; 83605-TC; 83735-TC; 84100-TC; 84443-TC; 84484-TC; 85025-TC; 85730-TC; 87040-TC; 87081-TC; 87086-TC; 94760-TC; 94799-TC; A4629; G0378; J7030; J7050; Q9967

== ENCOUNTER 2023-12-09 15:53 | Emergency (ER) | payer BC, OTHER ==
[~2023-12-09] VITALS: Ht 167.6 cm; Wt 67.1 kg
[~2023-12-09 15:53] MED LIST changes: +ALLA266C2 TP; +AMIN30LI2 GT; +ASCO500T21 GT; -BACL10TA GT; +BACL5TAB GT; +COLL30OI TP; -DOCU100C36 GT; -FAMO20TA8 GT; -HEPA500014 SQ; -HONE44PA TP; +HYDR-3972 GT; -HYDR-3972 PO; -HYDR-4075 GT; +LACT-209 GT; -LACT-89 GT; +LORA-258 GT; -MAGN400T8 GT; -MODAFINIL GT; +NITR0.4T48 SL; +PANT40SU2 GT; -PIPE3.379 IV; -POTASSIUM BICARB GT; -TEMA15CA GT; +ZINC220C6 GT; -ZONI100C31 GT
[2023-12-09 17:09] LABS: BASOPHILS # (AUTO) 0.1 K/uL (0.0-0.2); BASOPHILS % (AUTO) 0.7 % (0.0-2.0); EOSINOPHILS # (AUTO) 0.9 K/uL (0.0-0.7); EOSINOPHILS % (AUTO) 10.5 % (0.0-6.0); HEMATOCRIT 41 % (39-51); HEMOGLOBIN 13.6 g/dL (13.5-17.5); LYMPHOCYTES # (AUTO) 2.4 K/uL (0.8-4.8); LYMPHOCYTES % (AUTO) 29.3 % (20.0-44.0); MEAN CORPUSCULAR HEMOGLOBIN 28 PG (26.0-33.0); MEAN CORPUSCULAR HGB CONC 33 g/dl (31.0-36.0); MEAN CORPUSCULAR VOLUME 85 fL (80-96); MONOCYTES # (AUTO) 0.6 K/uL (0.1-1.30); MONOCYTES % (AUTO) 7.8 % (2.0-12.0); NEUTROPHILS # (AUTO) 4.3 K/uL (1.8-8.9); NEUTROPHILS % (AUTO) 51.7 % (43.0-81.0); PLATELET COUNT (AUTO) 335 K/uL (150-450); RED BLOOD CELL COUNT(AUTO) 4.88 MIL/uL (4.5-6.0); RED CELL DISTRIBUTION WIDTH 15.4 % (11.5-15.0); WHITE BLOOD COUNT (AUTO) 8.2 K/uL (4.3-11.0)
[2023-12-09 17:23] LABS: CALCIUM, SERUM 9.7 mg/dL (8.5-10.1); CREATININE 0.8 mg/dL (0.6-1.3)
[2023-12-09 17:50] VITALS: BP 159/78; TEMP 98.2; O2SAT 98
== END 2023-12-09 21:55 ==
LOC: ER 17:41
DX: M79.602 Pain in left arm (principal); I10 Essential (primary) hypertension; G40.909 Epilepsy, unspecified, not intractable, without status epilepticus; W18.39XA Other fall on same level, initial encounter; Y93.89 Activity, other specified; Y92.89 Other specified places as the place of occurrence of the external cause; Y99.8 Other external cause status
CPT/HCPCS: 36415; 71045-TC; 72170-TC; 73030-TC; 73060-TC; 80048-TC; 85025-TC